=== PATIENT | male | born 1955 | race Caucasian/White ===

== ENCOUNTER → 2016-07-13 | Outpatient (CLI) | payer OTHER ==
[~2016-07-13] MED LIST: MECLIZINE 25MG25 MG PO
--- NOTE | 2016-07-13 15:30 | RADIOLOGY REPORT PS360 ---
PROCEDURE: 2-D M-mode and color Doppler study INDICATIONS FOR THE TEST: Chest pain COPD Heart Murmur Tobacco Smoking Palpitations+ Fatigue Syncope Edema Hypertension Diabetes Mellitus Rheumatic Fever SOB MADRID Obesity Hyperlipidemia Family History HD Additional History ABN EKG PATIENT INFORMATION HEIGHT: 72 WEIGHT:220 GENDER: Male B/P:138/98 2-D/M-MODE INTERPRETATION: 2-D MEASUREMENTS OBSERVED VALUES IN CMS Right Ventricular Dimension (RVDd) 2.3 Interventricular Septum (Thickness)(IVsd) 1.0 Left Ventricular Internal Dimensions(LVIDd) 5.1 Left Ventricular Posterior Wall (Thickness)(LVPWd) 1.0 Aortic Root 3.7 Aortic Cusp Separation 2.6 Left Atrial Dimensions (LAD) 3.8 2D 1. The left atrium is normal size, the left ventricle is normal size, there is no concentric left ventricular hypertrophy present, visually estimated ejection fraction 55% with no obvious regional wall motion abnormality. 2. The right-sided chambers are normal size and contractility. 3. The aortic valve is thickened and calcified consistent with aortic sclerosis, there is no aortic stenosis. 4. The mitral and tricuspid valve restructure normal. 5. The pulmonic valve is not well visualized. 6. No significant pericardial effusion noted. DOPPLER INTERROGATION: Doppler interrogation of the aortic mitral and tricuspid valve reveals presence of mild mitral and tricuspid regurgitation, tricuspid regurgitant jet velocity insufficient for calculation of the right ventricular systolic pressure. CONCLUSION: 1. Normal left ventricular size, preserved left ventricular systolic function visually estimated ejection fraction of 55% with no obvious regional wall motion abnormality. 2. Aortic sclerosis without aortic stenosis or aortic insufficiency. 3. Mild mitral and tricuspid regurgitation, tricuspid regurgitant jet velocity insufficient for calculation of the right ventricular systolic pressure. 4. No significant pericardial effusion noted.
--- NOTE | 2016-07-13 20:13 | RADIOLOGY REPORT PS360 ---
MRI-UP EXT ANY JNT W/O-LT MRI left shoulder ORDERING PHYSICIAN : Brandon Gamez MD PATIENT AGE: 60 years GENDER: Male INDICATION: ROTATOR CUFF SYNDROME OF LEFT SHOULDER TECHNIQUE: Multiplanar multisequence imaging performed on 1.5 the MR. COMPARISON: 03/30/2016 FINDINGS Large full-thickness rotator cuff tear has unroofed the humeral head in with this it has migrated superiorly nearly articulating with inferior acromion.. Likely fairly long-standing RCT rather than acute. Complete Supraspinatus Tendon Tear: with prominent tendon retraction. . complete tear with over 3 cm retraction of the supraspinatus tendon coronal view. Notable, significant atrophy of supraspinatus tendon reflects this is a long-standing tear . With this there superior migration of the humeral head nearly articulating with inferior acromion Infraspinatus Tendon Tear:. Complete tear and retraction of infraspinatus tendon with atrophy of the infraspinatus muscle reflecting a long-standing tear. Teres minor tendon and muscle remains intact Subscapularis Tendon: I believe intact anteriorly Biceps tendon appears intact but does have increased signal compatible with biceps tendinopathy. This is seen just superior to the bicipital groove as it begins to pass over the humeral head. This may be exaggerated by magic angle artifact. There is prominent roughening of the greater tuberosity reflecting long-standing degenerative changes here Degenerative changes of AC joint. Glenoid-osseous glenoid is intact with anterior labrum I believe is intact although possibly with some mild degeneration. Difficult to exclude a posterior labral tear but the appearance may merely be due to pattern Generous fluid at subdeltoid subacromial bursa. Mild degenerative changes AC joint. IMPRESSION: 1. Large long-standing full-thickness rotator cuff tear, with superior migration of humeral head such that it is nearly articulating with the inferior acromion. ... Supraspinatus tendon tear with retraction. & atrophy supraspinatus muscle, reflecting long-standing tear ... Infraspinatus tendon tear with less pronounced retraction. & atrophy infraspinatus muscle, reflecting long-standing tear .... These Features have unroofed the humeral head allowing it to migrate superiorly . 2. Joint effusion.. Fluid throughout the the subdeltoid/subacromial bursa reflects the large full-thickness RCT 3. Probable tendinopathy of the biceps tendon, but no complete tear of this structure 4. Question/suspect minimal irregularity or fraying at the posterior glenoid labrum
== END ==
LOC: RAD 08:44
DX: M75.102 Unspecified rotator cuff tear or rupture of left shoulder, not specified as traumatic (principal); R00.2 Palpitations; R94.31 Abnormal electrocardiogram [ECG] [EKG]